=== PATIENT | female | born 1995 | race Caucasian/White ===

== ENCOUNTER 2017-05-18 21:22 | Emergency (ER) | payer OTHER ==
[~2017-05-18] VITALS: Ht 160 cm; Wt 68.0 kg
[2017-05-18 21:26] VITALS: BP 131/52
--- NOTE | 2017-05-18 21:36 | NUR ---
AMBULATED TO ER OF2
--- NOTE | 2017-05-18 22:03 | NUR ---
C/O COUGH, SORETHROAT, N/V, HEADACHE, SORETHROAT, X2 DAYS ABD FLAT, SOFT, NONTENDER, ACTIVE BS X4, BL LUNG SOUNDS CLEAR THROUGHOUT. PT C/O BODY ACHES, HEADACHE, SORETHROAT, PAIN 5/10. PT STATES SHE TOOK "VICKS SYRUP AND XL3" AROUND 7PM W/ NO RELIEF. PMH ANEMIA, NKA.
[2017-05-18] MEDS ORDERED: IBUPROFEN 800 MG TAB PO ONE (22:20)
[2017-05-18] MEDS ORDERED: IBUPROFEN 800 MG TAB ONE (22:23)
[2017-05-18 23:02] VITALS: BP 111/74
--- NOTE | 2017-05-18 23:03 | NUR ---
Patient discharged with v/s stable. Written and verbal after care instructions given and explained. Patient alert, oriented and verbalized understanding of instructions. Ambulatory with steady gait. All questions addressed prior to discharge. ID band removed. Patient advised to follow up with PMD. Rx of TRAMADOL 50MG, PROMETHAZINE HCL given. Patient educated on indication of medication including possible reaction and side effects. Opportunity to ask questions provided and answered.
== END 2017-05-18 23:02 | disposition home or self-care (01) ==
LOC: MED 21:22
DX: B34.9 Viral infection, unspecified (principal); R03.0 Elevated blood-pressure reading, without diagnosis of hypertension; Z86.2 Personal history of diseases of the blood and blood-forming organs and certain disorders involving the immune mechanism
CPT/HCPCS: 99283